=== PATIENT | male | born 1965 | race Caucasian/White ===

== ENCOUNTER → 2018-06-03 | Day surgery (SDC) | payer BC | LOC: MSO 08:46 | DX: Z12.11 Encounter for screening for malignant neoplasm of colon (principal); K57.30 Diverticulosis of large intestine without perforation or abscess without bleeding; I10 Essential (primary) hypertension; J45.909 Unspecified asthma, uncomplicated; K21.9 Gastro-esophageal reflux disease without esophagitis; Z79.899 Other long term (current) drug therapy; E66.9 Obesity, unspecified | CPT/HCPCS: 00812; J2704; J3010; J7120 ==

== ENCOUNTER 2019-12-31 14:49 | Emergency (ER) | payer BC ==
[~2019-12-31] VITALS: Ht 177.8 cm; Wt 102.0 kg
[2019-12-31 15:30] LABS: EOS # 0.1 (0.04-0.40); EOS % 1.7 % (0.0-4.0); HEMATOCRIT 41.1 % (42.0-52.0); HEMOGLOBIN 13.8 g/dL (13.5-18.0); LYMPH# 1.7 (1.50-4.00); MEAN CELL VOLUME 84 fl (78-100); MEAN CORPUSCULAR HEMOGLOBIN 28 pg (27-31); MEAN CORPUSCULAR HGB CONC 34 g/dL (33-37); MEAN PLATELET VOLUME 9.4 fl (7.4-10.4); MONO # 0.6 (0.20-0.80); NEU # 4.6 (1.40-6.50); PLATELET COUNT 279 K/mm3 (130-400); RED BLOOD COUNT 4.92 M/mm3 (4.20-5.60); RED CELL DISTRIBUTION WIDTH 12.6 % (11.5-14.5); WHITE BLOOD COUNT 7.1 K/mm3 (4.8-10.8)
[2019-12-31 15:35] LABS: ALBUMIN 4.2 g/dL (3.5-5.0)
[2019-12-31] MEDS ORDERED: PRILOSEC 20MG20 MG PO ×2 (15:36→15:37)
[2019-12-31 15:37] LABS: TOTAL PROTEIN 7.4 g/dL (6.4-8.3)
[2019-12-31 15:39] LABS: TOTAL BILIRUBIN 0.3 mg/dL (0.2-1.2)
[2019-12-31 15:43] LABS: D-DIMER 0.14 mg/L FEU (0.15-0.50)
[2019-12-31] MEDS ORDERED: LISINOPRIL2.5 MG PO (15:50)
[2019-12-31] MEDS ORDERED: MONTELUKAS4 MG/Packe PO (15:51)
[2019-12-31] MEDS ORDERED: GOOD NEIGHBOR P20 M1 (15:51)
[2019-12-31] MEDS ORDERED: PRINIVIL5 M1 (15:51)
[2019-12-31] MEDS ORDERED: SIMVASTATIN5 M1 (15:52)
[2019-12-31] MEDS ORDERED: FLUTICASON0.05 MG/AC (15:52)
[2019-12-31] MEDS ORDERED: AFRIN PUMPMIST15 ML (15:52)
[2019-12-31] MEDS ORDERED: VIAGRA 25MG TAB25 MG (15:53)
[2019-12-31] MEDS ORDERED: DORZOLAMIDE HYD10 ML (15:53)
[2019-12-31 19:05] VITALS: BP 144/88
== END 2019-12-31 19:00 | disposition home or self-care (01) ==
LOC: ED 14:49
PROVIDERS: Physician Assistant
DX: R07.89 Other chest pain (principal); I10 Essential (primary) hypertension; E78.5 Hyperlipidemia, unspecified
CPT/HCPCS: J1885; J2270; J7030

== ENCOUNTER 2020-04-16 14:15 | Outpatient (RCR) | payer BC ==
[~2020-04-16 14:15] MED LIST: AFRIN PUMPMIST15 ML; DORZOLAMIDE HYD10 ML; FLUTICASON0.05 MG/AC; GOOD NEIGHBOR P20 M1; LISINOPRIL2.5 MG PO; MONTELUKAS4 MG/Packe PO; PRILOSEC 20MG20 MG PO; PRINIVIL5 M1; SIMVASTATIN5 M1; VIAGRA 25MG TAB25 MG
== END 2020-04-16 15:00 | disposition still patient (30) ==
LOC: OT 14:15
DX: G56.01 Carpal tunnel syndrome, right upper limb (principal); G56.23 Lesion of ulnar nerve, bilateral upper limbs; M25.521 Pain in right elbow